=== PATIENT | male | born 1960 | race Caucasian/White ===

== ENCOUNTER 2021-03-01 12:03 | Emergency (ER) | payer OTHER ==
[~2021-03-01 12:03] MED LIST: AMBIEN10 MG PO; ASPIR 8181 MG PO; COZAAR100 MG PO; HYDRALAZINE HCL50 MG PO; HYDROCHLOROTH12.5 M1 PO; PROTONIX40 MG PO; SYNTHROID25 MCG PO
[2021-03-01 13:14] LABS: HEMOGLOBIN 16.7 gm/dl (14.0-17.5); RED BLOOD COUNT 5.66 M/UL (4.20-5.50); WHITE BLOOD COUNT 6.6 K/UL (4.5-11.0)
[2021-03-01 13:35] LABS: BUN/CREATININE RATIO 11 (0-10)
[2021-03-01] MEDS ORDERED: HYDROCHLOROTHIA25 MG PO (14:29)
== END 2021-03-01 15:53 | disposition home or self-care (01) ==
LOC: ER1 12:03
PROVIDERS: Emergency Medicine
DX: I10 Essential (primary) hypertension (principal)
CPT/HCPCS: 70450; 71045; 80053; 81001; 82550; 82553; 83874; 84484; 85025; 93005; 99284

== ENCOUNTER 2021-07-12 00:57 | Emergency (ER) | payer OTHER ==
[~2021-07-12 00:57] MED LIST changes: +HYDROCHLOROTHIA25 MG PO
[2021-07-12 01:47] LABS: HEMOGLOBIN 15.9 gm/dl (14.0-17.5); RED BLOOD COUNT 5.1 M/UL (4.20-5.50); WHITE BLOOD COUNT 11.1 K/UL (4.5-11.0)
[2021-07-12 03:31] LABS: BUN/CREATININE RATIO 21 (0-10)
== END 2021-07-12 08:30 | disposition short-term general hospital (02) ==
LOC: ER1 00:57
PROVIDERS: Emergency Medicine
DX: I63.50 Cerebral infarction due to unspecified occlusion or stenosis of unspecified cerebral artery (principal); R27.0 Ataxia, unspecified; R29.704 NIHSS score 4; Z20.822 Contact with and (suspected) exposure to COVID-19
CPT/HCPCS: 70450; 71045; 80053; 81001; 82550; 82553; 83874; 84484; 85025; 87086; 93005; 99285; U0002